=== PATIENT | male | born 1975 | race Hispanic/Latino ===

== ENCOUNTER → 2018-08-27 13:38 | Outpatient (CLI) | payer OTHER, SELFPAY ==
--- NOTE | 2018-08-27 | DI.MRI.S_ITS ---
PROCEDURE: MR KNEE RT W CON INDICATIONS: Medial right knee pain TECHNIQUE: After the administration of 50 mL of dilute intra-articular Gadolinium contrast, sagittal T1 spin echo with fat saturation and PD fast spin echo with fat saturation, coronal T1 spin echo with and without fat saturation, coronal T2 fast spin echo with fat saturation, axial PD fast spin echo with fat saturation through the knee. COMPARISON: [facility], CR, XR KNEE ARTHRITIC SERIES RT, 07/23/2018, 15:44. FINDINGS: Image quality: Diagnostic. Bones and joint: There is no acute fracture or dislocation. No suspicious osseous lesions are evident. There is adequate distention of the knee joint with the injected contrast. No Peralta cysts are evident. There is a small intra-articular joint body identified it has a relatively linear appearance within the suprapatellar recess of the joint space, which measures approximately 12 mm in length by 7 mm in width by 2 mm in depth, likely representing a cartilaginous joint body arising from the anterior margin of the medial trochlear groove. There is a moderate sized defect of the hyaline articular cartilage identified involving the anterior margin of the medial femoral condyle within the trochlear groove. Small areas of cartilaginous fissuring along the lateral patellar facet is present. Irregularity of the hyaline articular cartilage is noted within the medial tibial femoral compartment with smoothly marginated a mild irregular defects of the cartilage within the medial femoral condyle and the medial tibial plateau, most pronounced involving the medial tibial plateau. Cruciate ligaments: The anterior and posterior cruciate ligaments are intact. Thickening of the anterior cruciate ligament likely represents scarring. Menisci: Prominent thinning of the medial meniscus is identified, which may be related to previous partial meniscectomy. This is best appreciated through the body of the meniscus. However, there is a horizontal oblique tear identified that extends from the posterior meniscal root of the medial meniscus to the body of the meniscus and involves the inferior articular surface. No detached or displaced fragments are identified. The lateral meniscus is intact and otherwise within normal limits. Medial structures: The medial collateral ligament is intact. The semimembranosus tendon insertion is intact. The imaged portions of the pes anserinus tendons are unremarkable. No significant fluid is contained within the pes anserinus bursa. Lateral structures: The popliteal tendon is intact. The lateral collateral ligament proper (fibular collateral ligament) and the proximal tibiofibular ligaments are intact. The distal aspect of the biceps femoris tendon and the iliotibial band are intact. Anterior structures: The quadriceps and patellar tendons are intact. However, there is thickening and increased signal identified diffusely along the patellar tendon, most pronounced involving the distal aspect of the patellar tendon. A trace amount of fluid is seen within the deep infrapatellar bursa. There is a small amount of edema in the infrapatellar fat pad. IMPRESSION: 1. Patellofemoral and medial compartment chondromalacia. 2. Small cartilaginous joint body along the suprapatellar recess. 3. Complex tear of the medial meniscus. Superimposed partial meniscectomy involving the body of the meniscus may be present. Inferior articular surface extension is evident. No displaced fragments. 4. Mild to moderate patellar tendinopathy. Dictated by: Ayden Carcamo M.D. on 08/27/2018 at 14:44 Approved by: Ayden Carcamo M.D. on 08/27/2018 at 14:48
--- NOTE | 2018-08-27 | DI.RAD.S_ITS ---
PROCEDURE: FL KNEE INJECTION MR/CT RT INDICATIONS: OTHER TEAR OF MEDIAL MENISCUS RIGHT KNEE TECHNIQUE: The indications, alternatives, benefits, risks, and complications of the procedure were explained to the patient. Written informed consent was obtained and placed in the chart. The knee was examined fluoroscopically, and a site chosen for knee joint injection. The skin was prepped and draped in a sterile fashion, and 1% Lidocaine infiltrated from the skin down to the articular surface. A hypodermic needle was then introduced into the joint and iodinated contrast media was instilled to confirm the intra-articular needle tip placement. This was followed by approximately 50 mL dilute solution of a gadolinium containing MR contrast agent. The needle was removed and a bandage was applied. An Venkata wrap was then applied around the knee joint to keep the contrast from collecting in the suprapatellar recess. The patient experienced no complications throughout the procedure and left the fluoroscopic suite in no apparent distress. FINDINGS: Single fluoroscopic spot image demonstrates intra-articular location to injected iodinated contrast. IMPRESSION: Successful fluoroscopically guided administration of dilute Gadolinium solution into the knee joint for MR arthrogram. Dictated by: Juan Bhakta M.D. on 08/27/2018 at 20:51 Approved by: Juan Bhakta M.D. on 08/27/2018 at 20:52
== END ==
PROVIDERS: PCP Family Medicine; Visit Provider Orthopaedic Surgery
DX: S83.231A Complex tear of medial meniscus, current injury, right knee, initial encounter (principal); M22.41 Chondromalacia patellae, right knee
CPT/HCPCS: 20610; 73722; 77002

== ENCOUNTER → 2019-06-16 09:02 | Outpatient (CLI) | payer OTHER, SELFPAY ==
--- NOTE | 2019-06-16 | DI.MRI.S_ITS ---
PROCEDURE: MR KNEE RT W CON INDICATIONS: Unspecified internal derangement of right knee TECHNIQUE: After the administration of 50 mL of dilute intra-articular Gadolinium contrast, sagittal T1 spin echo with fat saturation and PD fast spin echo with fat saturation, coronal T1 spin echo with and without fat saturation, coronal T2 fast spin echo with fat saturation, axial PD fast spin echo with fat saturation through the knee. COMPARISON: [facility], MR, MR KNEE RT W CON, 08/27/2018, 14:22. [facility], CR, XR KNEE ARTHRITIC SERIES RT, 05/27/2019, 16:45. FINDINGS: Image quality: Suboptimal due to present punctate radiopaque foreign body seen on the prior radiograph from 05/27/19. There is associated feels susceptibility artifact. Menisci: Lateral meniscus appears grossly intact. Redemonstration of curvilinear signal change within the posterior horn of the medial meniscus, extending to the intra-articular surface. Overall, very similar appearance to prior study dated 08/27/18. Adjacent para meniscal cyst measuring 11 x 5 mm appear slightly increased in size since the prior study As before, there is diminutive appearance of the body of the medial meniscus which may be postsurgical change related to partial meniscectomy Cruciate ligaments: The anterior and posterior cruciate ligaments appear intact. Medial structures: The medial collateral ligament appears intact. The posterior oblique ligament, semimembranosus tendon insertions, oblique popliteal ligament, and meniscocapsular junction appear intact. Visualized portions of the pes anserinus tendons appear normal. No abnormal bursal fluid. Lateral structures: The lateral collateral ligament, long and short heads of the biceps femoris tendon appear intact. The popliteus tendon appears normal; the popliteofibular ligament appears intact. The posterosuperior and anteroinferior popliteomeniscal fascicles appear intact. The arcuate and fabellofibular ligaments appear intact around the lateral inferior geniculate artery. Iliotibial band appears normal. Anterior structures: Quadriceps tendon intact. Medial and lateral patellofemoral ligaments intact. There is mild patellar tendinopathy. Bone and cartilage: No focal marrow contusion or discrete low signal fracture line. Within the medial compartment, diffuse partial-thickness loss surface fraying of the femoral and tibial articular cartilage Within the lateral compartment, no focal articular cartilage defect identified Within the patellofemoral compartment, with partial-thickness loss and fissuring of the cartilage overlying the medial femoral trochlea as well as the median patellar ridge. Joint space: No Peralta's cyst. Mildly prominent suprapatellar plica, as before. A possible 5 mm loose body seen at the posterolateral joint space image 17 series 6. IMPRESSION: Similar appearance to the presumed recurrent medial meniscal tear involving the posterior horn and body, although adjacent parameniscal cyst is slightly increased in size. Background partial medial meniscectomy changes as above. Degenerative joint disease involving the medial and patellofemoral compartments, grossly unchanged. Possible 5 mm posterolateral intra-articular loose body. Dictated by: Juan Bhakta M.D. on 06/16/2019 at 10:41 Approved by: Juan Bhakta M.D. on 06/16/2019 at 10:53
--- NOTE | 2019-06-16 | DI.RAD.S_ITS ---
PROCEDURE: FL KNEE INJECTION MR/CT RT INDICATIONS: Unspecified internal derangement of right knee TECHNIQUE: The indications, alternatives, benefits, risks, and complications of the procedure were explained to the patient. Written informed consent was obtained and placed in the chart. The knee was examined fluoroscopically, and a site chosen for knee joint injection. The skin was prepped and draped in a sterile fashion, and 1% Lidocaine infiltrated from the skin down to the articular surface. A hypodermic needle was then introduced into the joint and iodinated contrast media was instilled to confirm the intra-articular needle tip placement. This was followed by approximately 50 mL dilute solution of a gadolinium containing MR contrast agent. The needle was removed and a bandage was applied. An Venkata wrap was then applied around the knee joint to keep the contrast from collecting in the suprapatellar recess. The patient experienced no complications throughout the procedure and left the fluoroscopic suite in no apparent distress. FINDINGS: Single fluoroscopic spot image demonstrates intra-articular location to injected iodinated contrast. IMPRESSION: Successful fluoroscopically guided administration of dilute Gadolinium solution into the knee joint for MR arthrogram. Dictated by: Juan Bhakta M.D. on 06/16/2019 at 10:58 Approved by: Juan Bhakta M.D. on 06/16/2019 at 10:58
== END ==
PROVIDERS: Family Provider Family Medicine; PCP Family Medicine; Visit Provider Orthopaedic Surgery
DX: M23.91 Unspecified internal derangement of right knee (principal); M17.11 Unilateral primary osteoarthritis, right knee; M23.003 Cystic meniscus, unspecified medial meniscus, right knee
CPT/HCPCS: 27369; 73722; 77002

== ENCOUNTER → 2021-06-20 08:34 | Outpatient (CLI) | payer BC, SELFPAY ==
--- NOTE | 2021-06-20 | DI.US.S_ITS ---
PROCEDURE: US ABDOMEN LIMITED INDICATIONS: Abnormal serum enzyme level, unspecified TECHNIQUE: Real-time scanning was performed of the abdominal and retroperitoneal organs, with image documentation. COMPARISON: None. FINDINGS: Liver: Liver is normal in size . Diffusely increased liver parenchymal echotexture is seen suggestive of hepatic steatosis. No definite discrete hepatic lesion is noted. Gallbladder: There is no gallstone. No gallbladder wall thickening or pericholecystic fluid. No sonographic Hernández sign. Biliary ducts: Intrahepatic bile ducts are non-dilated. Extrahepatic bile duct is poorly visualized, no gross biliary ductal dilatation is seen. Pancreas: Visualized portions of the pancreas are sonographically normal. IMPRESSION: 1. Hepatic steatosis, no discrete hepatic lesion. 2. Normal appearing gallbladder. 3. No gross biliary ductal dilatation. Evaluation is limited due to poor penetration through the liver. Dictated by: Subhash Kaba M.D. on 06/20/2021 at 10:23 Approved by: Subhash Kaba M.D. on 06/20/2021 at 10:24
== END ==
PROVIDERS: Family Provider Family Medicine; PCP Family Medicine; Referring Provider Family Medicine; Visit Provider Family Medicine
DX: R74.9 Abnormal serum enzyme level, unspecified (principal); K76.0 Fatty (change of) liver, not elsewhere classified
CPT/HCPCS: 76705

== ENCOUNTER → 2022-11-01 17:15 | Outpatient (CLI) | payer BC, SELFPAY ==
--- NOTE | 2022-11-01 17:20 | DI.RAD.S_ITS ---
PROCEDURE: XR KNEE RT 3V INDICATIONS: RT. KNEE PAIN TECHNIQUE: 3 views of the knee were acquired. COMPARISON: None. FINDINGS: Bones: No fractures or dislocations. No suspicious bony lesions. Moderate tricompartmental osteoarthritic changes of the right knee with marginal osteophytes. Soft tissues: No substantial joint effusion. No suspicious soft tissue calcifications. IMPRESSION: Right knee without acute fracture or dislocation. Moderate tricompartmental osteoarthrosis of the right knee. Dictated by: Faizan Beebe M.D. on 11/02/2022 at 9:23 Approved by: Faizan Beebe M.D. on 11/02/2022 at 9:24
== END ==
PROVIDERS: Family Provider Family Medicine; PCP Family Medicine; Referring Provider Family Medicine; Visit Provider Family Medicine
DX: M25.561 Pain in right knee (principal); M17.11 Unilateral primary osteoarthritis, right knee
CPT/HCPCS: 73562

== ENCOUNTER → 2022-11-18 14:25 | Outpatient (CLI) | payer BC, SELFPAY ==
--- NOTE | 2022-11-18 | DI.MRI.S_ITS ---
PROCEDURE: MR KNEE RT WO CON INDICATIONS: Cystic meniscus, lateral meniscus right knee TECHNIQUE: Noncontrast sagittal PD fast spin echo and T2 fast spin echo with fat saturation, sagittal 3-D FLASH with fat saturation; coronal T1 spin echo and PD fast spin echo with fat saturation, and axial PD fast spin echo with fat saturation through the knee. COMPARISON: [facility], MR, MR KNEE RT W CON, 08/27/2018, 14:22. [facility], MR, MR KNEE RT W CON, 06/16/2019, 9:59. [facility], CR, XR KNEE RT 3V, 11/01/2022, 17:27. FINDINGS: Image quality: Excellent. Menisci: The body of the medial meniscus is severely truncated, likely secondary to prior meniscectomy. There is chronic tear of the posterior horn of the medial meniscus, unchanged. There are small meniscal cysts adjacent to the posterior horn of the medial meniscus. The lateral meniscus demonstrates normal morphology and internal signal. The meniscal root ligaments appear intact. Cruciate ligaments: The anterior and posterior cruciate ligaments appear intact. Medial structures: Metallic artifact in the superior medial aspect of the knee joint. The medial collateral ligament appears intact. The semimembranosus tendon insertions and meniscocapsular junction appear intact. Visualized portions of the pes anserinus tendons appear normal. No abnormal bursal fluid. Lateral structures: The lateral collateral ligament, long and short heads of the biceps femoris tendon appear intact. The popliteus tendon appears normal. Iliotibial band appears normal. Anterior structures: The quadriceps and patellar tendons appear intact. Patellar alignment is normal. No femoral trochlear dysplasia or ventral trochlear prominence. No edema in the infrapatellar fat pad. Bones and cartilage: No bone marrow contusions or fractures. There is tricompartmental cartilage thinning and fibrillation, most pronounced in the medial femorotibial compartment. Joint space: There is small knee joint effusion. No Peralta's cyst. Normal appearing synovial plicae are incidentally noted. IMPRESSION: 1. Medial meniscectomy with truncation of the body of the medial meniscus. There is chronic tear involving the posterior horn of the medial meniscus with associated small meniscal cysts. 2. The lateral meniscus appears intact. 3. Tricompartmental osteoarthritis, most pronounced in the medial femorotibial compartment. 4. Small knee joint effusion. Dictated by: Klayan Neely M.D. on 11/20/2022 at 8:39 Approved by: Kalyan Neely M.D. on 11/20/2022 at 11:54
== END ==
PROVIDERS: Family Provider Family Medicine; PCP Family Medicine; Referring Provider Family Medicine; Visit Provider Family Medicine
DX: M23.021 Cystic meniscus, posterior horn of medial meniscus, right knee (principal); M23.221 Derangement of posterior horn of medial meniscus due to old tear or injury, right knee; M17.11 Unilateral primary osteoarthritis, right knee; M25.461 Effusion, right knee
CPT/HCPCS: 73721

== ENCOUNTER → 2023-02-13 11:55 | Day surgery (SDC) | payer BC, SELFPAY ==
--- NOTE | 2023-02-13 | PATH_ITS ---
[facility] Accession Number: [id number] No. of containers..01 Tissue . 01 Material submitted: . sigmoid colon - SIGMOID POLYP . 01 Diagnosis: Sigmoid Colon Polyp, Biopsy: Features consistent with hyperplastic polyp. [facility] 02/19/2023 1258 Local . 01 Electronically signed: . Lina Rodriguez MD, Pathologist NPI- [id number] . 01 Gross description: . SIGMOID POLYP: Received in formalin is 1 fragment(s) of russell, soft tissue measuring 0.8 x 0.7 x 0.7 cm submitted entirely in 1 cassette(s) /ALEXI 02/14/2023 2317 Local . 01 Pathologist provided ICD-10: D12.5 . 01 CPT . 043821 Specimen Comment: A courtesy copy of this report has been sent to [phone] Performed at: 01 [facility] [address] [place] [address], [place], [place] [id number] MD Brock Brown MD Phone: [phone]
[2023-02-13 12:19] VITALS: BMI 34.1
[2023-02-13 12:31] VITALS: BP 159/92; PULSE 70; RESP 17; TEMP 36.6; O2SAT 97
[2023-02-13] MEDS: LACTATED RINGERS 1,000 ML 200 ML IV (12:34)
--- NOTE | 2023-02-13 12:38 | P.HP_ITS ---
History of Present Illness History of Present Illness Date Patient Seen: 02/13/23 Time Patient Seen: 12:38 Chief complaint: Colonoscopy Narrative: The patient presents for colorectal screening. They have never had any previous examination for such. No personal or family history of colon cancer. On further history denies any recent gastrointestinal symptoms. No nausea, vomiting, abdominal pain, loss of appetite, unexplained weight loss, change in bowel habits, or blood per rectum. PFSH Medical History (Updated 01/20/23 @ 13:45 by Devyn Torres MD) Hemorrhoids Hypertension Surgical History (Updated 01/20/23 @ 13:44 by Devyn Torres MD) H/O hemorrhoidectomy H/O knee surgery History of tonsillectomy Social History marital status: household members: spouse lives independently: Yes occupational status: employed Smoking Status: Never smoker alcohol intake: never substance use type: does not use Meds Home Medications and Allergies Home Medications Medication Instructions Recorded Confirmed Type amlodipine 5 mg tablet 5 mg PO DAILY 01/19/23 02/13/23 History cholecalciferol (vitamin D3) 125 125 mcg PO DAILY 01/19/23 02/13/23 History mcg (5,000 unit) capsule fenugreek seed 610 mg capsule 610 mg PO 01/19/23 01/19/23 History hydrocodone 5 mg-acetaminophen 325 1 tab PO TID PRN Pain (Scale Score 01/19/23 02/13/23 History mg tablet 4-6) lisinopril 20 mg tablet 20 mg PO DAILY 01/19/23 02/13/23 History meloxicam 15 mg tablet 15 mg PO DAILY 01/19/23 02/13/23 History sodium sul 1.479 gram-potas ch See Rx Instructions PO PER PKG DIR 01/24/23 Rx 0.188 gram-magnes sul 0.225 gram #24 tabs tablet (Sutab) Allergies Allergy/AdvReac Type Severity Reaction Status Date / Time No Known Drug Allergies Allergy Verified 02/13/23 12:14 Exam Vital Signs (past 8 hours): - 02/13/23 12:31 Temperature 97.9 F Pulse Rate 70 Respiratory Rate 17 Blood Pressure 159/92 H Pulse Oximetry 97 Oxygen Delivery Method Room Air Oxygen Delivery Method Room Air Narrative Exam Narrative: General adult man alert oriented no acute distress Chest nonlabored respiration Abdomen soft nontender nondistended Assessment & Plan Assessment & Plan narrative: The patient requires colorectal screening and colonoscopy is recommended. Tech nical details were discussed. Risks, benefits, alternatives explained. Risks including but not limited to myocardial infarction, aspiration, bleeding, pain, missed lesion, incomplete examination, need for further radiographic studies, colonic perforation, and need for major abdominal surgery were discussed. All questions were answered to their satisfaction, and they are in agreement with this plan.
[2023-02-13 13:03] VITALS: BP 120/81; PULSE 81; RESP 16; TEMP 36.5; O2SAT 95
--- NOTE | 2023-02-13 13:06 | PM.OP.COLON ---
Operative Date/Time/Diagnoses Date of procedure: 02/13/23 Time of procedure: 13:06 Pre-op diagnosis: Colorectal screening Post-op diagnosis: other (Colonic polyp x1) Procedure & Clinicians Study performed: Colonoscopy and polypectomy Same procedure as scheduled: Yes Indications: Colorectal screening Surgeon: Devyn Torres Procedure Notes Procedure in detail: The history and physical was performed/updated and the patient is ASA class is 2. The procedure was discussed in detail with the patient. Potential risks complications including infection, bleeding, missed diagnosis, perforation, need for surgery, and were explained. Their questions were answered and informed consent was obtained. Patient was brought to the procedure room and placed standard monitoring equipment. The patient's vital signs were monitored continuously throughout the entire procedure. Prior to starting time-out was performed. The patient was placed in the left lateral recumbent position. Procedural sedation was administered by anesthesia. Examination began with a thorough inspection of the perianal area there was no evidence of fissures, fistulae, external hemorrhoids or cutaneous malignancy. The colonoscopy scope was then placed into the anal canal and was advanced to the cecum, which was identified by the ileocecal valve, the appendiceal orifice and the confluence of the taenia. The scope was then slowly withdrawn examining colon thoroughly in all directions, irrigating it of any residual stool. Within the cecum there was an 8 mm pedunculated polyp which was removed with cold snare in its entirety. Remainder of the colon was normal in its appearance. The patient tolerated the procedure well. They will be discharged once criteria are met. The prep was of good/excellent quality. The withdrawl time was 7 minutes. Specimen(s): other (Sigmoid colon polyp) Impression: Colonic polyp x1 Post-procedure Plan for aftercare: Follow-up is dependent on pathology findings Disposition: same day surgery
[2023-02-13 13:09] VITALS: BP 119/80; PULSE 74; RESP 16; O2SAT 94
[2023-02-13 13:14] VITALS: BP 125/91; PULSE 71; RESP 16; TEMP 37; O2SAT 94
[2023-02-13 13:17] VITALS: BP 134/94; PULSE 69; RESP 21; O2SAT 96
== END | disposition home or self-care (01) ==
PROVIDERS: Family Provider Family Medicine; PCP Family Medicine; Referring Provider Surgery; Visit Provider Surgery
PROC: 0DJD8ZZ Inspection of Lower Intestinal Tract, Via Natural or Artificial Opening Endoscopic (ICD-10-PCS; CPT 45378; principal; 2023-02-13 13:00)
DX: Z12.11 Encounter for screening for malignant neoplasm of colon (principal); D12.5 Benign neoplasm of sigmoid colon
CPT/HCPCS: 45385; J2704

== ENCOUNTER → 2024-03-15 15:42 | Outpatient (CLI) | payer BC, SELFPAY ==
--- NOTE | 2024-03-15 15:45 | DI.MRI.S_ITS ---
PROCEDURE: MR KNEE RT WO CON INDICATIONS: Knee Pain TECHNIQUE: Noncontrast sagittal PD fast spin echo and T2 fast spin echo with fat saturation, sagittal 3-D FLASH with fat saturation; coronal T1 spin echo and PD fast spin echo with fat saturation, and axial PD fast spin echo with fat saturation through the knee. COMPARISON: [facility], MR, MR KNEE RT WO CON, 11/18/2022, 14:37. FINDINGS: Image quality: Excellent. Menisci: Truncated appearance of medial meniscus suggestive of prior partial medial meniscectomy unchanged from previous study. Signal abnormality involving posterior horn remanent of medial meniscus extending to inferior articulating surface suggestive of oblique tear. 1.4 x 2.7 cm cystic structure adjacent to posterior horn of medial meniscus is seen suggestive of Purnima meniscal cyst. The lateral meniscus is intact. The meniscal root ligaments appear intact. Cruciate ligaments: The anterior cruciate ligament is thickened with intrasubstance T2 hyperintense signal. The posterior cruciate ligament is intact. Medial structures: The medial collateral ligament appears thickened with intrasubstance T2 hyperintense signal and surrounding soft tissue edema. Visualized portions of the pes anserinus tendons appear normal. No abnormal bursal fluid. Lateral structures: The lateral collateral ligament, long and short heads of the biceps femoris tendon appear intact. The popliteus tendon appears normal. At Iliotibial band appears normal. Anterior structures: Distal quadriceps tendinosis at its superior patellar insertion is seen. The patellar tendon is intact. Patellar alignment is normal. No femoral trochlear dysplasia or ventral trochlear prominence. No edema in the infrapatellar fat pad. Bones and cartilage: No bone marrow contusions or fractures. [id number] tricompartmental osteoarthritis and chondromalacia is seen most notably in medial femoral tibial compartment. Joint space: There is small to moderate knee joint fluid. No Peralta's cyst. Normal appearing synovial plicae are incidentally noted. IMPRESSION: 1. Prior partial medial meniscectomy with postsurgical changes. Suggestion of recurrent oblique tear involving posterior horn remanent of medial meniscus extending to inferior articulating surface with adjacent perimeniscal cyst. The lateral meniscus is intact. 2. Sprain/low-grade intrasubstance partial-thickness tear involving ACL. No ACL rupture. The PCL is intact. 3. Low to moderate grade MCL sprain/partial-thickness tear. 4. Distal quadriceps tendinosis. 5. [id number] tricompartmental osteoarthritis and chondromalacia more notably in medial femoral tibial compartment. No fracture or dislocation. Small to moderate joint effusion, no loose bodies. Dictated by: Subhash Kaba M.D. on 03/17/2024 at 11:05 Approved by: Subhash Kaba M.D. on 03/17/2024 at 11:13
== END ==
LOC: MRI 15:42
PROVIDERS: Family Provider Family Medicine; PCP Family Medicine; Referring Provider Family Medicine; Visit Provider Family Medicine
DX: S83.511A Sprain of anterior cruciate ligament of right knee, initial encounter (principal); S83.411A Sprain of medial collateral ligament of right knee, initial encounter; M17.11 Unilateral primary osteoarthritis, right knee; M25.461 Effusion, right knee; M94.261 Chondromalacia, right knee; M23.41 Loose body in knee, right knee
CPT/HCPCS: 73721

== ENCOUNTER → 2025-08-29 10:56 | Outpatient (CLI) | payer BC, SELFPAY ==
[2025-08-29 13:18] LABS: Add Manual Diff / Slide Review NO; Hematocrit 45.9 % (41-53); Hemoglobin 16.2 g/dL (13.5-17.5); Lymphocytes Absolute Auto 1800 /uL (1100-4500); Mean Corpuscular HGB Conc 35.2 % (30-36); Mean Corpuscular Hemoglobin 28.9 PG (26-34); Mean Corpuscular Volume 82.2 fL (80-100); Platelet Count 224 X10^3/uL (150-400)
[2025-08-29 13:40] LABS: Alanine Aminotransferase 62 IU/L (<50); Albumin 4.9 g/dL (3.5-5.0); Albumin Globulin Ratio 1.6 (1.0-2.8); Alkaline Phosphatase 63 U/L (38-126); Blood Urea Nitrogen 21 mg/dL (9-20); Calcium 9.8 mg/dL (8.4-10.2); Carbon Dioxide 24 mmol/L (22-32); Chloride 106 mmol/L (98-107); Cholesterol 246 mg/dL (140-199); Estimated Glomerular Filt Rate > 60 mL/min (>60); Globulin 3.0 g/dL (1.7-4.1); Glucose 98 mg/dL (70-99); HDL Cholesterol 44 mg/dL (40-60); HEMOLYSIS < 15 (0-50); Potassium 4.5 mmol/L (3.4-5.1); Sodium 141 mmol/L (137-145); Total Protein 7.9 g/dL (6.3-8.2); Triglycerides 180 mg/dL (35-150)
== END ==
PROVIDERS: Family Provider Family Medicine; PCP Family Medicine; Referring Provider Family Medicine; Visit Provider Family Medicine
DX: Z01.84 Encounter for antibody response examination (principal); Z13.0 Encounter for screening for diseases of the blood and blood-forming organs and certain disorders involving the immune mechanism; Z13.220 Encounter for screening for lipoid disorders; Z13.228 Encounter for screening for other metabolic disorders; Z13.828 Encounter for screening for other musculoskeletal disorder; E78.49 Other hyperlipidemia; I10 Essential (primary) hypertension; M25.561 Pain in right knee
CPT/HCPCS: 36415; 80053; 80061; 85025; 85651; 86038; 86140; 86430